=== PATIENT | male | born 1980 | race African-American/Black ===

== ENCOUNTER 2021-12-06 10:58 | Emergency (ER) | payer OTHER, SELFPAY ==
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
[2021-12-06 11:09] VITALS: BP 134/72; PULSE 72; RESP 16; TEMP 36.2; O2SAT 100
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
[2021-12-06] MEDS: KETOROLAC (*BKC) 60 MG/2 ML VIAL IM (12:17)
== END 2021-12-06 13:01 | disposition home or self-care (01) ==
PROVIDERS: Emergency Provider Emergency Medicine
DX: S16.1XXA Strain of muscle, fascia and tendon at neck level, initial encounter (principal); V49.40XA Driver injured in collision with unspecified motor vehicles in traffic accident, initial encounter
CPT/HCPCS: 71046; 72125; 73030; 96372; 99284; J1885